=== PATIENT | male | born 1995 | race Caucasian/White ===

== ENCOUNTER 2017-03-31 19:16 | Emergency (ER) | payer MEDICAID ==
[2017-03-31] MEDS ORDERED: Cyclobenzaprine 10 MG Tab PO ONE (20:29)
[2017-03-31] MEDS ORDERED: Ketorolac 60 MG/2 ML SDV IM ONE (20:29)
--- NOTE | 2017-03-31 20:36 | EDM.PDOC ---
ED HPI GENERAL MEDICAL PROBLEM - General Chief Complaint: Back Pain or Injury Stated Complaint: LOW BACK PAIN Time Seen by Provider: 03/31/17 20:22 Source of Information: Reports: Patient History Limitations: Reports: No Limitations - History of Present Illness INITIAL COMMENTS - FREE TEXT/NARRATIVE: low back pain; this is a 21 year old male present to ER with SO, reports at 3: 30pm today, was at his Mom's house, picking up a box TV, which was really heavy , felt like his back "popped" like a tearing sensation. has been in "serious" pain ever since. Hurts to sit, walk, lay down. Can not get comfortable. denies any changes in bowel or bladder Onset: Sudden Onset Date: 03/31/17 Onset Time: 15:30 Duration: Constant, Getting Worse Location: Reports: Back Quality: Reports: Pressure, Sharp, Stabbing Severity: Severe Improves with: Reports: None Worsens with: Reports: Movement Context: Reports: Other (lifting a heavy box TV) Associated Symptoms: Reports: No Other Symptoms Lower Back Pain Score (Numeric/FACES): 10 - Related Data Allergies Allergy/AdvReac Type Severity Reaction Status Date / Time No Known Allergies Allergy Verified 03/31/17 20:06 Home Meds: Home Meds NK [No Known Home Meds] 03/31/17 [History] Past Medical History Musculoskeletal History: Reports: Fracture Other Musculoskeletal History: Fx hand s,arms, legs, toes. Neurological History: Reports: Concussion, Migraines Dermatologic History: Reports: Other (See Below) Other Dermatologic History: rash - Infectious Disease History Infectious Disease History: Reports: Chicken Pox - Past Surgical History GI Surgical History: Reports: Hernia, Inguinal Social & Family History - Tobacco Use Smoking Status *Q: Current Every Day Smoker Years of Tobacco use: 8 Packs/Tins Daily: 1 Used Tobacco, but Quit: No Second Hand Smoke Exposure: Yes - Caffeine Use Caffeine Use: Reports: Coffee, Soda, Tea - Alcohol Use Days Per Week of Alcohol Use: 2 Number of Drinks Per Day: 4 Total Drinks Per Week: 8 - Recreational Drug Use Recreational Drug Use: No ED ROS GENERAL - Review of Systems Review Of Systems: See Below Constitutional: Reports: Other (back pain. reports otherwise healthy) HEENT: Reports: No Symptoms Respiratory: Reports: No Symptoms Cardiovascular: Reports: No Symptoms Endocrine: Reports: No Symptoms GI/Abdominal: Reports: No Symptoms : Reports: No Symptoms Musculoskeletal: Reports: Back Pain Skin: Reports: No Symptoms, Other (heavily Tattoo, head, neck, arms, hands.upper chest) Neurological: Reports: Difficulty Walking (due to back pain,) Psychiatric: Reports: No Symptoms Hematologic/Lymphatic: Reports: No Symptoms Immunologic: Reports: No Symptoms ED EXAM, GENERAL - Physical Exam Exam: See Below Exam Limited By: No Limitations General Appearance: Alert, WD/WN, Moderate Distress, Other (very polite , pleasant, neat and well groomed.) Eye Exam: Bilateral Eye: Normal Inspection Neck: Normal Inspection, Supple, Non-Tender Respiratory/Chest: No Respiratory Distress, Lungs Clear, Normal Breath Sounds, No Accessory Muscle Use, Chest Non-Tender, Other (pain with inspiration) Cardiovascular: Regular Rate, Rhythm, No Murmur GI/Abdominal: Normal Bowel Sounds, Soft, Non-Tender (Male) Exam: Deferred Rectal (Males) Exam: Deferred Back Exam: Decreased Range of Motion (increased pain with flexion or extension of spine. pain does not change with rotation of spine. increased pain with straight leg lift.), Muscle Spasm (low back, doesnot radiate to hips or legs. patellar refexes 2+ bilateral) Extremities: Normal Inspection, Leg Pain (increased with straight leg lift bilateral. ) Neurological: Alert, Oriented, Other (pain with ambulation) Psychiatric: Normal Affect, Normal Mood Skin Exam: Warm, Dry, Intact, Normal Color, No Rash, Other (tattoo on head, neck , arms, finger, anterior upper chest.) Lymphatic: No Adenopathy Course - Vital Signs Last Recorded V/S: Last Vital Signs Temp 35.6 C 03/31/17 20:12 Pulse 60 03/31/17 20:12 Resp 16 03/31/17 20:12 BP 121/63 03/31/17 20:12 Pulse Ox 99 03/31/17 20:12 - Orders/Labs/Meds Orders: Active Orders 24 hr Category Date Time Status Lumbar Spine 2 or 3V [CR] Stat Exams 03/31/17 20:28 Taken Meds: Medications Discontinued Medications Generic Name Dose Route Start Last Admin Trade Name Freq PRN Reason Stop Dose Admin Cyclobenzaprine HCl 10 mg 03/31/17 20:29 03/31/17 20:56 Flexeril PO 03/31/17 20:30 10 mg ONETIME ONE Administration Ketorolac Tromethamine 60 mg 03/31/17 20:29 03/31/17 20:57 Toradol IM 03/31/17 20:30 60 mg ONETIME ONE Administration - Re-Assessments/Exams Free Text/Narrative Re-Assessment/Exam: 03/31/17 20:42 order Toradol 60mg IM, flexeril 10 mg po now imaging; xray lumbar spine 03/31/17 21:19 xray no acute bony injury noted. discussed xray results with Patient and SO will discharge to home with back restrictions, medications. work slip written Departure - Departure Time of Disposition: 21:20 Disposition: Home, Self-Care 01 Condition: Good Clinical Impression: Lumbar back sprain - Discharge Information Referrals: PCP,None [Primary Care Provider] - Forms: ED Department Discharge Care Plan Goals: Lumbar back strain -[place] 5-325mg take one every 4 to 6 hours as needed for pain #10 -Flexeril 10mg take one every 8 hours as needed for muscle spasms #15 -Ibuprofen 600mg take one eveyr 8 hours for pain #30 -work slip for next 3 to 5 days advised no lifting greater than 10 pounds, bending or twisting for next 3 to 5 days will need to follow up with Primary Care Provider for recheck in 5 days if not improved return to ER for any numbness of legs, changes in bowel or bladder or any concerns. - Problem List & Annotations (1) Lumbar back sprain SNOMED Code(s): 250929456 Code(s): S33.5XXA - SPRAIN OF LIGAMENTS OF LUMBAR SPINE, INITIAL ENCOUNTER Status: Acute Priority: High Current Visit: Yes Qualifiers: Encounter type: initial encounter Qualified Code(s): S33.5XXA - Sprain of ligaments of lumbar spine, initial encounter - Problem List Review Problem List Initiated/Reviewed/Updated: Yes - My Orders Last 24 Hours: My Active Orders 03/31/17 20:28 Lumbar Spine 2 or 3V [CR] Stat - Assessment/Plan Last 24 Hours: My Active Orders 03/31/17 20:28 Lumbar Spine 2 or 3V [CR] Stat Plan: Lumbar back strain -[place] 5-325mg take one every 4 to 6 hours as needed for pain #10 -Flexeril 10mg take one every 8 hours as needed for muscle spasms #15 -Ibuprofen 600mg take one eveyr 8 hours for pain #30 -work slip for next 3 to 5 days advised no lifting greater than 10 pounds, bending or twisting for next 3 to 5 days will need to follow up with Primary Care Provider for recheck in 5 days if not improved return to ER for any numbness of legs, changes in bowel or bladder or any concerns.
--- NOTE | 2017-04-01 09:11 | CR ---
Lumbar Spine 2 or 3V FINDINGS: Routine views of the lumbosacral spine reveal the vertebral bodies to be of normal height w ith adequate maintenance of the intervertebral disc spaces. There is no evidence of traumatic, neopla stic, or significant arthritic change. There is no evidence of spondylolysis or spondylolisthesis. IMPRESSION: Normal lumbar spine.
== END 2017-03-31 21:35 | disposition home or self-care (01) ==
LOC: JP.ED 19:16
DX: S33.5XXA Sprain of ligaments of lumbar spine, initial encounter (principal); X50.0XXA Overexertion from strenuous movement or load, initial encounter; F17.210 Nicotine dependence, cigarettes, uncomplicated
CPT/HCPCS: 72100; 96372; 99284; A9270; J1885; 99283

== ENCOUNTER 2018-08-29 22:22 | Inpatient (IN) | payer MEDICAID, OTHER ==
[2018-08-29] MEDS ORDERED: Sodium Chloride 0.9% 10 ML Syringe FLUSH PRN (22:51)
[2018-08-29] MEDS ORDERED: Ondansetron 4 MG/2 ML SDV IVPUSH ONE (22:51)
[2018-08-29] MEDS ORDERED: fentaNYL 100 MCG/2 ML SDV IVPUSH ONE (22:51)
--- NOTE | 2018-08-29 22:53 | EDM.PDOC ---
ED HPI GENERAL MEDICAL PROBLEM - General Chief Complaint: Abdominal Pain Stated Complaint: ABD PAIN Time Seen by Provider: 08/29/18 22:48 Source of Information: Reports: Patient, RN Notes Reviewed History Limitations: Reports: No Limitations - History of Present Illness INITIAL COMMENTS - FREE TEXT/NARRATIVE: 23-year-old presents to the emergency department today with complaint of abdominal pain, he states he's had pain on and off for the last 3 days but today it got significantly worse it seems to be in the left upper quadrant no nausea he is not passing gas no fevers no shortness of breath or chest pain no history of nephrolithiasis - Related Data Allergies Allergy/AdvReac Type Severity Reaction Status Date / Time No Known Allergies Allergy Verified 08/29/18 22:36 Home Meds: Home Meds NK [No Known Home Meds] 03/31/17 [History] Past Medical History Musculoskeletal History: Reports: Fracture Other Musculoskeletal History: Fx hand s,arms, legs, toes. Neurological History: Reports: Concussion, Migraines Dermatologic History: Reports: Other (See Below) Other Dermatologic History: rash - Infectious Disease History Infectious Disease History: Reports: Chicken Pox - Past Surgical History GI Surgical History: Reports: Hernia, Inguinal Social & Family History - Tobacco Use Smoking Status *Q: Current Every Day Smoker Years of Tobacco use: 6 Packs/Tins Daily: 1 - Caffeine Use Caffeine Use: Reports: Coffee, Soda, Tea ED ROS GENERAL - Review of Systems Review Of Systems: See Below Constitutional: Denies: Fever, Chills HEENT: Reports: No Symptoms Respiratory: Reports: No Symptoms Cardiovascular: Reports: No Symptoms GI/Abdominal: Reports: Abdominal Pain. Denies: Flatus, Nausea, Vomiting : Reports: No Symptoms Musculoskeletal: Reports: No Symptoms Skin: Reports: No Symptoms ED EXAM, GI/ABD - Physical Exam Exam: See Below Exam Limited By: No Limitations General Appearance: Alert, WD/WN, Mild Distress Eyes: Bilateral: Normal Appearance Throat/Mouth: Normal Inspection, Normal Lips, Normal Teeth, Normal Gums, Normal Oropharynx, Normal Voice, No Airway Compromise Head: Atraumatic, Normocephalic Neck: Normal Inspection, Supple, Non-Tender, Full Range of Motion Respiratory/Chest: No Respiratory Distress, Lungs Clear, Normal Breath Sounds, No Accessory Muscle Use, Chest Non-Tender Cardiovascular: Regular Rate, Rhythm, No Murmur GI/Abdominal Exam: Normal Bowel Sounds, Soft, Tender (Left upper quadrant) Back Exam: No: CVA Tenderness (R), CVA Tenderness (L) Course - Vital Signs Last Recorded V/S: Last Vital Signs Temp 96.4 F 08/29/18 22:43 Pulse 57 L 08/29/18 22:43 Resp 16 08/29/18 22:43 BP 135/87 08/29/18 22:43 Pulse Ox 98 08/29/18 22:43 - Orders/Labs/Meds Orders: Active Orders 24 hr Category Date Time Status Peripheral IV Care [RC] . DIRECTED Care 08/29/18 22:51 Active Lactated Ringers [Ringers, Lactated] 1,000 ml Med 08/29/18 23:00 Active IV ASDIRECTED Sodium Chloride 0.9% [Saline Flush] Med 08/29/18 22:51 Active 10 ml FLUSH ASDIRECTED PRN Nasogastric Orogastric Tube Insertion [OM.PC] Routine Oth 08/30/18 01:08 Ordered Peripheral IV Insertion Adult [OM.PC] Urgent Oth 08/29/18 22:51 Ordered Medication Orders Lactated Ringer's (Ringers, Lactated) 1,000 mls @ 999 mls/hr IV ASDIRECTED ANAID Last Admin: 08/29/18 23:36 Dose: 999 mls/hr Sodium Chloride (Saline Flush) 10 ml FLUSH ASDIRECTED PRN PRN Reason: Keep Vein Open Last Admin: 08/29/18 23:04 Dose: 10 ml Labs: Laboratory Tests 08/29/18 08/29/18 08/29/18 Range/Units 22:59 22:59 22:59 WBC 7.6 (4.5-11.0) K/uL RBC 5.10 (4.30-5.90) M/uL Hgb 15.3 H (12.0-15.0) g/dL Hct 43.9 (40.0-54.0) % MCV 86 (80-98) fL MCH 30 (27-31) pg MCHC 35 (32-36) % Plt Count 271 (150-400) K/uL Neut % (Auto) 45 (36-66) % Lymph % (Auto) 40 (24-44) % [place] % (Auto) 13 H (2-6) % Eos % (Auto) 2 (2-4) % Baso % (Auto) 1 (0-1) % Sodium 139 L (140-148) mmol/L Potassium 3.7 (3.6-5.2) mmol/L Chloride 100 (100-108) mmol/L Carbon Dioxide 30 (21-32) mmol/L Anion Gap 12.7 (5.0-14.0) mmol/L BUN 19 H (7-18) mg/dL Creatinine 1.1 (0.8-1.3) mg/dL Est Cr Clr Drug Dosing 106.92 mL/min Estimated GFR (MDRD) > 60 (>60) Glucose 90 (74-106) mg/dL Lactic Acid 0.8 (0.4-2.0) mmol/L Calcium 9.5 (8.5-10.1) mg/dL Total Bilirubin 0.4 (0.2-1.0) mg/dL AST 20 (15-37) U/L ALT 24 (12-78) U/L Alkaline Phosphatase 98 (46-116) U/L Total Protein 7.5 (6.4-8.2) g/dL Albumin 3.9 (3.4-5.0) g/dL Globulin 3.6 H (2.3-3.5) g/dL Albumin/Globulin Ratio 1.1 L (1.2-2.2) Lipase 96 (73-393) U/L Urine Color Urine Appearance Urine pH (4.5-8.0) Ur Specific [place] (1.008-1.030) Urine Protein (NEGATIVE) mg/dL Urine Glucose (UA) (NEGATIVE) mg/dL Urine Ketones (NEGATIVE) mg/dL Urine Occult Blood (NEGATIVE) Urine Nitrite (NEGAITVE) Urine Bilirubin (NEGATIVE) Urine Urobilinogen (NORMAL) mg/dL Ur Leukocyte Esterase (NEGATIVE) Urine RBC (0-5) Urine WBC (0-5) Ur Epithelial Cells Amorphous Sediment Urine Bacteria Urine Mucus 08/29/18 Range/Units 23:24 WBC (4.5-11.0) K/uL RBC (4.30-5.90) M/uL Hgb (12.0-15.0) g/dL Hct (40.0-54.0) % MCV (80-98) fL MCH (27-31) pg MCHC (32-36) % Plt Count (150-400) K/uL Neut % (Auto) (36-66) % Lymph % (Auto) (24-44) % [place] % (Auto) (2-6) % Eos % (Auto) (2-4) % Baso % (Auto) (0-1) % Sodium (140-148) mmol/L Potassium (3.6-5.2) mmol/L Chloride (100-108) mmol/L Carbon Dioxide (21-32) mmol/L Anion Gap (5.0-14.0) mmol/L BUN (7-18) mg/dL Creatinine (0.8-1.3) mg/dL Est Cr Clr Drug Dosing mL/min Estimated GFR (MDRD) (>60) Glucose (74-106) mg/dL Lactic Acid (0.4-2.0) mmol/L Calcium (8.5-10.1) mg/dL Total Bilirubin (0.2-1.0) mg/dL AST (15-37) U/L ALT (12-78) U/L Alkaline Phosphatase (46-116) U/L Total Protein (6.4-8.2) g/dL Albumin (3.4-5.0) g/dL Globulin (2.3-3.5) g/dL Albumin/Globulin Ratio (1.2-2.2) Lipase (73-393) U/L Urine Color Yellow Urine Appearance Clear Urine pH 7.0 (4.5-8.0) Ur Specific [place] 1.010 (1.008-1.030) Urine Protein Negative (NEGATIVE) mg/dL Urine Glucose (UA) Normal (NEGATIVE) mg/dL Urine Ketones Negative (NEGATIVE) mg/dL Urine Occult Blood Negative (NEGATIVE) Urine Nitrite Negative (NEGAITVE) Urine Bilirubin Negative (NEGATIVE) Urine Urobilinogen Normal (NORMAL) mg/dL Ur Leukocyte Esterase Negative (NEGATIVE) Urine RBC 0-5 (0-5) Urine WBC 0-5 (0-5) Ur Epithelial Cells Rare Amorphous Sediment Not seen Urine Bacteria Few Urine Mucus Not seen Meds: Medications Generic Name Dose Route Start Last Admin Trade Name Freq PRN Reason Stop Dose Admin Lactated Ringer's 1,000 mls @ 999 mls/hr 08/29/18 23:00 08/29/18 23:36 Ringers, Lactated IV 999 mls/hr ASDIRECTED ANAID Administration Sodium Chloride 10 ml 08/29/18 22:51 08/29/18 23:04 Saline Flush FLUSH 10 ml ASDIRECTED PRN Administration Keep Vein Open Discontinued Medications Generic Name Dose Route Start Last Admin Trade Name Freq PRN Reason Stop Dose Admin Fentanyl 50 mcg 08/29/18 22:51 08/29/18 23:04 Sublimaze IVPUSH 08/29/18 22:52 50 mcg ONETIME ONE Administration Sodium Chloride 75 mls @ 3.5 mls/sec 08/29/18 23:19 08/29/18 23:25 Normal Saline IV 08/29/18 23:20 3.5 mls/sec ASDIRECTED STA Administration Iopamidol 116 ml 08/29/18 23:18 08/29/18 23:24 Isovue-300 (61%) IV 08/29/18 23:19 150 ml . DIRECTED STA Administration Ondansetron HCl 4 mg 08/29/18 22:51 08/29/18 23:04 Zofran IVPUSH 08/29/18 22:52 4 mg ONETIME ONE Administration Departure - Departure Time of Disposition: 01:14 Disposition: Refer to Observation Condition: Fair Clinical Impression: SBO (small bowel obstruction) - Discharge Information Referrals: PCP,None [Primary Care Provider] - Forms: ED Department Discharge - My Orders Last 24 Hours: My Active Orders 08/29/18 22:51 Peripheral IV Care [RC] . DIRECTED Sodium Chloride 0.9% [Saline Flush] 10 ml FLUSH ASDIRECTED PRN Peripheral IV Insertion Adult [OM.PC] Urgent 08/29/18 23:00 Lactated Ringers [Ringers, Lactated] 1,000 ml IV ASDIRECTED 08/30/18 01:08 Nasogastric Orogastric Tube Insertion [OM.PC] Routine - Assessment/Plan Last 24 Hours: My Active Orders 08/29/18 22:51 Peripheral IV Care [RC] . DIRECTED Sodium Chloride 0.9% [Saline Flush] 10 ml FLUSH ASDIRECTED PRN Peripheral IV Insertion Adult [OM.PC] Urgent 08/29/18 23:00 Lactated Ringers [Ringers, Lactated] 1,000 ml IV ASDIRECTED 08/30/18 01:08 Nasogastric Orogastric Tube Insertion [OM.PC] Routine Plan: Assessment Acuity = acute Site and laterality = small bowel obstruction Etiology = unclear etiology Manifestations = abdominal pain Location of injury = Home Lab values = CBC, CMP urinalysis unremarkable CT scan describes bowel obstruction above Plan Called discussed case with hospitalist nurse practitioner home assessments at 110 kindly agreed to come and evaluate the patient in the emergency department for admission This note was dictated using [email or web address] voice recognition software please call with any questions on syntax or grammar.
[2018-08-29] MEDS ORDERED: Lactated Ringers 1,000 ML IV SCH (23:00)
[2018-08-29] MEDS ORDERED: Iopamidol 612 MG/ML 150 ML Bottle IV STA (23:18)
[2018-08-29] MEDS ORDERED: Sodium Chloride 0.9% 75 ML IV STA (23:19)
--- NOTE | 2018-08-30 01:05 | CRLCT ---
INDICATION: Left upper quadrant abdominal pain. TECHNIQUE: CT abdomen and pelvis acquired with IV contrast. COMPARISON: None FINDINGS: Lower chest: Unremarkable. Liver: Unremarkable. Spleen: Unremarkable. Pancreas: Unremarkable. Gallbladder and bile ducts: Unremarkable. Kidneys: Unremarkable. Adrenal glands: Unremarkable. GI tract: The stomach is distended with fluid. There are several prominent to mildly dilated fluid filled loops of small bowel identified. Transition to nondilated small bowel identified in the left aspect of the pelvis. Proximal jejunal loops are nondistended. No pneumatosis. No portal venous gas. The appendix is normal. No acute colonic abnormality. Right colon is not decompressed. Left colon is relatively decompressed. Vascular structures: No sign of aneurysm. Lymph nodes: Unremarkable. Miscellaneous: There is a small amount of free fluid in the pelvis. No free intraperitoneal gas. Pelvic Organs: Unremarkable. Bones: No acute abnormality. No suspicious bone lesion. IMPRESSION: 1. Several prominent to mildly dilated fluid-filled loops of small bowel. Findings are suspicious for early or partial small bowel obstruction. Likely transition point in the left pelvis. 2. Small amount of free fluid in the pelvis likely reactive to #1. Results called to Officer Kristian at 1 a.m. on 08/30/2018. Dictated by Fly King MD @ 08/30/2018 1:04:37 AM Please note that all CT scans at this facility use dose modulation, iterative reconstruction, and/or weight-based dosing when appropriate to reduce radiation dose to as low as reasonably achievable. Dictated by: Fly King MD @ 08/30/2018 01:05:14 (Electronically Signed)
[2018-08-30] MEDS ORDERED: LORazepam 2 MG/ML SDV IVPUSH ONE (01:35)
[2018-08-30] MEDS ORDERED: HYDROmorphone 1 MG/ML Syringe IVPUSH ONE (01:59)
--- NOTE | 2018-08-30 02:19 | PCM.HP ---
H&P History of Present Illness - General Date of Service: 08/30/18 Admit Problem/Dx: Admission Diagnosis/Problem Admission Diagnosis/Problem Small bowel obstruction Source of Information: Patient History Limitations: Reports: No Limitations - History of Present Illness Initial Comments - Free Text/Narative: 23-year-old presents to the emergency department today with complaint of abdominal pain, he states he's had pain on and off for the last 3 days but today it got significantly worse. Pain seems to be in the left upper quadrant, no nausea, he is not passing gas, no fever, no shortness of breath or chest pain. no history of nephrolithiasis. Onset of Symptoms: Reports: Gradual Duration of Symptoms: Reports: Hour(s): (increase pain this evening.), Day(s): ( intermittent for 3 days), Getting Worse Location: Reports: Abdomen Quality: Reports: Sharp Severity: Severe Improves with: Reports: None Worsens with: Reports: Eating Associated Symptoms: Reports: Loss of Appetite, Nausea/Vomiting - Related Data Allergies/Adverse Reactions: Allergies Allergy/AdvReac Type Severity Reaction Status Date / Time No Known Allergies Allergy Verified 08/29/18 22:36 Home Medications: Home Meds NK [No Known Home Meds] 03/31/17 [History] Past Medical History Musculoskeletal History: Reports: Fracture Other Musculoskeletal History: Fx hand s,arms, legs, toes. Neurological History: Reports: Concussion, Migraines Dermatologic History: Reports: Other (See Below) Other Dermatologic History: rash - Infectious Disease History Infectious Disease History: Reports: Chicken Pox - Past Surgical History GI Surgical History: Reports: Hernia, Inguinal Social & Family History - Tobacco Use Smoking Status *Q: Current Every Day Smoker Years of Tobacco use: 6 Packs/Tins Daily: 1 - Caffeine Use Caffeine Use: Reports: Coffee, Soda, Tea - Living Situation & Occupation Occupation: Employed (Works at [employer]. lives in [place] with roommate. Has a girlfriend Denisse.) H&P Review of Systems - Review of Systems: Review Of Systems: See Below General: Reports: Decreased Appetite, Other (report healthy until develops acute abdominal pain this evening.) HEENT: Reports: No Symptoms Pulmonary: Reports: No Symptoms, Other (smokes one pack per day) Cardiovascular: Reports: No Symptoms Gastrointestinal: Reports: Abdominal Pain (intermittent x 3 days, worse this evening, uncontrolled pain), Diarrhea (on Thursday), Nausea, Vomiting Genitourinary: Reports: No Symptoms Musculoskeletal: Reports: No Symptoms Skin: Reports: No Symptoms Psychiatric: Reports: No Symptoms Neurological: Reports: No Symptoms Hematologic/Lymphatic: Reports: No Symptoms Immunologic: Reports: No Symptoms Exam - Exam Exam: See Below - Vital Signs Vital Signs: Last Vital Signs Temp 35.8 C 08/29/18 22:43 Pulse 57 L 08/29/18 22:43 Resp 16 08/29/18 22:43 BP 135/87 08/29/18 22:43 Pulse Ox 98 08/29/18 22:43 Weight: 77.111 kg - Exam Quality Assessment: Other (NG tube ) General: Alert, Oriented, Cooperative, Moderate Distress (active vomiting) HEENT: PERRLA, Hearing Intact, Mucosa Moist & [place], Nares Patent, Normal Nasal Septum, Posterior Pharynx Clear, Conjunctiva Clear, EOMI, EACs Clear, TMs Clear Neck: Supple, Trachea Midline, 2 Lungs: Clear to Auscultation, Normal Respiratory Effort Cardiovascular: Normal S1, Normal S2 GI/Abdominal Exam: Tender, Other (firm flat abdomin with generalized tenderness. bowel sounds absent) (Male) Exam: Deferred Rectal (Males) Exam: Deferred Back Exam: Normal Inspection, Full Range of Motion Extremities: Normal Inspection, Normal Range of Motion, Non-Tender, No Pedal Edema, Normal Capillary Refill Skin: Warm, Dry, Intact, Other (extensive tattoo to head, neck, chest arms, hands.) Neurological: Reflexes Equal Bilateral, Strength Equal Bilateral Neuro Extensive - Mental Status: Alert, Oriented x3, Normal Mood/Affect, Normal Cognition Neuro Extensive - Motor, Sensory, Reflexes: Normal Reflexes Psychiatric: Alert, Normal Affect, Normal Mood - Patient Data Lab Results Last 24 hrs: Laboratory Results - last 24 hr 08/29/18 08/29/18 08/29/18 Range/Units 22:59 22:59 22:59 WBC 7.6 (4.5-11.0) K/uL RBC 5.10 (4.30-5.90) M/uL Hgb 15.3 H (12.0-15.0) g/dL Hct 43.9 (40.0-54.0) % MCV 86 (80-98) fL MCH 30 (27-31) pg MCHC 35 (32-36) % Plt Count 271 (150-400) K/uL Neut % (Auto) 45 (36-66) % Lymph % (Auto) 40 (24-44) % [place] % (Auto) 13 H (2-6) % Eos % (Auto) 2 (2-4) % Baso % (Auto) 1 (0-1) % Sodium 139 L (140-148) mmol/L Potassium 3.7 (3.6-5.2) mmol/L Chloride 100 (100-108) mmol/L Carbon Dioxide 30 (21-32) mmol/L Anion Gap 12.7 (5.0-14.0) mmol/L BUN 19 H (7-18) mg/dL Creatinine 1.1 (0.8-1.3) mg/dL Est Cr Clr Drug Dosing 106.92 mL/min Estimated GFR (MDRD) > 60 (>60) Glucose 90 (74-106) mg/dL Lactic Acid 0.8 (0.4-2.0) mmol/L Calcium 9.5 (8.5-10.1) mg/dL Total Bilirubin 0.4 (0.2-1.0) mg/dL AST 20 (15-37) U/L ALT 24 (12-78) U/L Alkaline Phosphatase 98 (46-116) U/L Total Protein 7.5 (6.4-8.2) g/dL Albumin 3.9 (3.4-5.0) g/dL Globulin 3.6 H (2.3-3.5) g/dL Albumin/Globulin Ratio 1.1 L (1.2-2.2) Lipase 96 (73-393) U/L Urine Color Urine Appearance Urine pH (4.5-8.0) Ur Specific [place] (1.008-1.030) Urine Protein (NEGATIVE) mg/dL Urine Glucose (UA) (NEGATIVE) mg/dL Urine Ketones (NEGATIVE) mg/dL Urine Occult Blood (NEGATIVE) Urine Nitrite (NEGAITVE) Urine Bilirubin (NEGATIVE) Urine Urobilinogen (NORMAL) mg/dL Ur Leukocyte Esterase (NEGATIVE) Urine RBC (0-5) Urine WBC (0-5) Ur Epithelial Cells Amorphous Sediment Urine Bacteria Urine Mucus 08/29/18 Range/Units 23:24 WBC (4.5-11.0) K/uL RBC (4.30-5.90) M/uL Hgb (12.0-15.0) g/dL Hct (40.0-54.0) % MCV (80-98) fL MCH (27-31) pg MCHC (32-36) % Plt Count (150-400) K/uL Neut % (Auto) (36-66) % Lymph % (Auto) (24-44) % [place] % (Auto) (2-6) % Eos % (Auto) (2-4) % Baso % (Auto) (0-1) % Sodium (140-148) mmol/L Potassium (3.6-5.2) mmol/L Chloride (100-108) mmol/L Carbon Dioxide (21-32) mmol/L Anion Gap (5.0-14.0) mmol/L BUN (7-18) mg/dL Creatinine (0.8-1.3) mg/dL Est Cr Clr Drug Dosing mL/min Estimated GFR (MDRD) (>60) Glucose (74-106) mg/dL Lactic Acid (0.4-2.0) mmol/L Calcium (8.5-10.1) mg/dL Total Bilirubin (0.2-1.0) mg/dL AST (15-37) U/L ALT (12-78) U/L Alkaline Phosphatase (46-116) U/L Total Protein (6.4-8.2) g/dL Albumin (3.4-5.0) g/dL Globulin (2.3-3.5) g/dL Albumin/Globulin Ratio (1.2-2.2) Lipase (73-393) U/L Urine Color Yellow Urine Appearance Clear Urine pH 7.0 (4.5-8.0) Ur Specific [place] 1.010 (1.008-1.030) Urine Protein Negative (NEGATIVE) mg/dL Urine Glucose (UA) Normal (NEGATIVE) mg/dL Urine Ketones Negative (NEGATIVE) mg/dL Urine Occult Blood Negative (NEGATIVE) Urine Nitrite Negative (NEGAITVE) Urine Bilirubin Negative (NEGATIVE) Urine Urobilinogen Normal (NORMAL) mg/dL Ur Leukocyte Esterase Negative (NEGATIVE) Urine RBC 0-5 (0-5) Urine WBC 0-5 (0-5) Ur Epithelial Cells Rare Amorphous Sediment Not seen Urine Bacteria Few Urine Mucus Not seen Result Diagrams: 08/29/18 22:59 08/29/18 22:59 - Problem List (1) SBO (small bowel obstruction) SNOMED Code(s): 597753929 ICD Code: K56.609 - UNSP INTESTNL OBST, UNSP TO PARTIAL VERSUS COMPLETE OBST Status: Acute Priority: High Current Visit: Yes (2) Tobacco dependence SNOMED Code(s): 98801085 ICD Code: F17.200 - NICOTINE DEPENDENCE, UNSPECIFIED, UNCOMPLICATED Status : Acute Priority: High Current Visit: Yes Problem List Initiated/Reviewed/Updated: Yes Orders Last 24hrs: Active Orders 24 hr Category Date Time Status Patient Status Manage Transfer [TRANSFER] Routine ADT 08/30/18 02:03 Ordered Peripheral IV Care [RC] . DIRECTED Care 08/29/18 22:51 Active Abdomen 1V Flat [CR] Stat Exams 08/30/18 01:37 Taken Lactated Ringers [Ringers, Lactated] 1,000 ml Med 08/29/18 23:00 Active IV ASDIRECTED Sodium Chloride 0.9% [Saline Flush] Med 08/29/18 22:51 Active 10 ml FLUSH ASDIRECTED PRN Nasogastric Orogastric Tube Insertion [OM.PC] Routine Oth 08/30/18 01:08 Ordered Peripheral IV Insertion Adult [OM.PC] Urgent Oth 08/29/18 22:51 Ordered Resuscitation Status Routine Resus Stat 08/30/18 02:04 Ordered Medication Orders Lactated Ringer's (Ringers, Lactated) 1,000 mls @ 999 mls/hr IV ASDIRECTED ANAID Last Admin: 08/29/18 23:36 Dose: 999 mls/hr Sodium Chloride (Saline Flush) 10 ml FLUSH ASDIRECTED PRN PRN Reason: Keep Vein Open Last Admin: 08/29/18 23:04 Dose: 10 ml Assessment/Plan Comment:: Small Bowel Obstruction ASSESSMENT / PLAN HPI: 23 year old male reports ate Thursday dinner of [place] chips, later developed acute abdominal pain. The pain continue to increase came to ER for evaluation. He report "Healthy", no chronic health condition except for smoking 1 pack per day. Does not take any medications on a daily basis. ER course White count was normal at 7.600 with 45% neutrophils. Hemoglobin normal, CMP also normal with a normal lactic acid. CT the abdomen and pelvis was done with IV contrast, patient responded well to the IV Fentanyl [address] confirmed a small bowel obstruction. After NG tube placement, Adeline became very nauseated from NG tube placement, given Ativan 1 mg IV. X ray ordered for tube place, it was noted to be high in stomach, the tube was retracted to 55 cm, suction of stomach fluid and nausea improved. Patient needed an additional dose of IV Dilaudid for pain control. Plan to admit to hospital. Partial Small Bowel Obstruction -NG to low intermittent suction, NG 18 fr at 55 cm. -Nothing by mouth -IV fluids Lacted Ringers 125 mL per hour for hydration -Anti-medic therapy as needed -Dilaudid HAT [employer]ER for pain control -Labs to be ordered for Thursday. Tobacco Dependence -albuterol MDI every 4 hours as needed for wheezing and cough -Advise to notify nurses of any cravings for nicotine -declines Nicotine patch Maintenance issues -Orders home meds: hold -Nutrition: Nothing by mouth -Llanos catheter not indicated at this time -DVT: ambulate -PPI: IV Protonix 40mg BID CODE STATUS: FULL CODE Admission status: Admit to [address] [place] [address] Admission justification. This patient will be admitted for inpatient services and is medically appropriate meeting medical necessity for inpatient admission as outlined in my documentation. I reasonably expect the patient will require inpatient services that span. Time over 2 midnights. I reasonably expect this patient to be discharged or transferred within 96 hours after admission to the critical access hospital. Disposition: home Primary care provider: Hospitalist: Dr. Rodriguez
--- NOTE | 2018-08-30 02:40 | CRLCR ---
Indication: NG tube placement Technique: Abdomen 1 view, 2 films Comparison: None Findings/Impression: Upper normal diameter loops of small bowel with a moderate amount of stool within the colon. Contrast noted within the collecting systems. Nasogastric tube with tip in body of the stomach. Dictated by Brennen Leija MD @ Aug 30 2018 2:38AM Signed by Dr. Brennen Leija @ Aug 30 2018 2:39AM
[2018-08-30] MEDS ORDERED: HYDROmorphone/Normal Saline 15 MG/30 ML PCA IV PRN (03:15)
[2018-08-30] MEDS ORDERED: Naloxone 0.4 MG/ML SDV IVPUSH PRN (03:15)
[2018-08-30] MEDS ORDERED: LORazepam 2 MG/ML SDV IV PRN (03:15)
[2018-08-30] MEDS ORDERED: Ondansetron 4 MG Tab.DIS PO PRN (03:15)
[2018-08-30] MEDS ORDERED: Albuterol 0.083% 2.5 MG/3 ML Neb Soln NEB PRN (03:15)
[2018-08-30] MEDS: Pantoprazole 40 MG Vial IVPUSH SCH ×2 (03:49→15:58)
[2018-08-30] MEDS: Lactated Ringers 1,000 ML IV SCH ×2 (11:31→19:11)
[2018-08-30] MEDS ORDERED: Nicotine Polacrilex 2 MG Gum CHEW PRN (12:55)
[2018-08-30] MEDS: Nicotine 21 MG/24 Hr Patch TRDERM SCH (14:48)
--- NOTE | 2018-08-30 17:38 | PCM.PN ---
- General Info Date of Service: 08/30/18 Subjective Update: Mr. Le is a 23-year-old gentleman who was admitted through the emergency department last night with abdominal pain and nausea secondary to small bowel obstruction. Symptoms that started on the day prior to admission and were unrelenting up until NG tube was placed. CT scan of the abdomen was obtained in the emergency department and showed evidence of at least partial small bowel obstruction. Since admission he has passed a small amount of gas but is not yet had a bowel movement. Only previous abdominal surgery was hernia repair. - Review of Systems General: Reports: No Symptoms Pulmonary: Reports: No Symptoms Cardiovascular: Reports: No Symptoms Gastrointestinal: Reports: Abdominal Pain, Nausea. Denies: Difficulty Swallowing, Hematochezia, Melena, Vomiting - Patient Data Vitals - Most Recent: Last Vital Signs Temp 98.3 F 08/30/18 15:57 Pulse 48 L 08/30/18 15:57 Resp 16 08/30/18 15:57 BP 120/79 08/30/18 15:57 Pulse Ox 99 08/30/18 15:57 Weight - Most Recent: 169 lb 15.975 oz I&O - Last 24 Hours: Intake & Output 08/30/18 08/30/18 08/30/18 06:59 14:59 22:59 Output Total 800 Balance -800 Lab Results Last 24 Hours: Laboratory Results - last 24 hr 08/29/18 08/29/18 08/29/18 Range/Units 22:59 22:59 22:59 WBC 7.6 (4.5-11.0) K/uL RBC 5.10 (4.30-5.90) M/uL Hgb 15.3 H (12.0-15.0) g/dL Hct 43.9 (40.0-54.0) % MCV 86 (80-98) fL MCH 30 (27-31) pg MCHC 35 (32-36) % Plt Count 271 (150-400) K/uL Neut % (Auto) 45 (36-66) % Lymph % (Auto) 40 (24-44) % [place] % (Auto) 13 H (2-6) % Eos % (Auto) 2 (2-4) % Baso % (Auto) 1 (0-1) % Sodium 139 L (140-148) mmol/L Potassium 3.7 (3.6-5.2) mmol/L Chloride 100 (100-108) mmol/L Carbon Dioxide 30 (21-32) mmol/L Anion Gap 12.7 (5.0-14.0) mmol/L BUN 19 H (7-18) mg/dL Creatinine 1.1 (0.8-1.3) mg/dL Est Cr Clr Drug Dosing 106.92 mL/min Estimated GFR (MDRD) > 60 (>60) Glucose 90 (74-106) mg/dL Lactic Acid 0.8 (0.4-2.0) mmol/L Calcium 9.5 (8.5-10.1) mg/dL Total Bilirubin 0.4 (0.2-1.0) mg/dL AST 20 (15-37) U/L ALT 24 (12-78) U/L Alkaline Phosphatase 98 (46-116) U/L Total Protein 7.5 (6.4-8.2) g/dL Albumin 3.9 (3.4-5.0) g/dL Globulin 3.6 H (2.3-3.5) g/dL Albumin/Globulin Ratio 1.1 L (1.2-2.2) Lipase 96 (73-393) U/L Urine Color Urine Appearance Urine pH (4.5-8.0) Ur Specific [place] (1.008-1.030) Urine Protein (NEGATIVE) mg/dL Urine Glucose (UA) (NEGATIVE) mg/dL Urine Ketones (NEGATIVE) mg/dL Urine Occult Blood (NEGATIVE) Urine Nitrite (NEGAITVE) Urine Bilirubin (NEGATIVE) Urine Urobilinogen (NORMAL) mg/dL Ur Leukocyte Esterase (NEGATIVE) Urine RBC (0-5) Urine WBC (0-5) Ur Epithelial Cells Amorphous Sediment Urine Bacteria Urine Mucus 08/29/18 Range/Units 23:24 WBC (4.5-11.0) K/uL RBC (4.30-5.90) M/uL Hgb (12.0-15.0) g/dL Hct (40.0-54.0) % MCV (80-98) fL MCH (27-31) pg MCHC (32-36) % Plt Count (150-400) K/uL Neut % (Auto) (36-66) % Lymph % (Auto) (24-44) % [place] % (Auto) (2-6) % Eos % (Auto) (2-4) % Baso % (Auto) (0-1) % Sodium (140-148) mmol/L Potassium (3.6-5.2) mmol/L Chloride (100-108) mmol/L Carbon Dioxide (21-32) mmol/L Anion Gap (5.0-14.0) mmol/L BUN (7-18) mg/dL Creatinine (0.8-1.3) mg/dL Est Cr Clr Drug Dosing mL/min Estimated GFR (MDRD) (>60) Glucose (74-106) mg/dL Lactic Acid (0.4-2.0) mmol/L Calcium (8.5-10.1) mg/dL Total Bilirubin (0.2-1.0) mg/dL AST (15-37) U/L ALT (12-78) U/L Alkaline Phosphatase (46-116) U/L Total Protein (6.4-8.2) g/dL Albumin (3.4-5.0) g/dL Globulin (2.3-3.5) g/dL Albumin/Globulin Ratio (1.2-2.2) Lipase (73-393) U/L Urine Color Yellow Urine Appearance Clear Urine pH 7.0 (4.5-8.0) Ur Specific [place] 1.010 (1.008-1.030) Urine Protein Negative (NEGATIVE) mg/dL Urine Glucose (UA) Normal (NEGATIVE) mg/dL Urine Ketones Negative (NEGATIVE) mg/dL Urine Occult Blood Negative (NEGATIVE) Urine Nitrite Negative (NEGAITVE) Urine Bilirubin Negative (NEGATIVE) Urine Urobilinogen Normal (NORMAL) mg/dL Ur Leukocyte Esterase Negative (NEGATIVE) Urine RBC 0-5 (0-5) Urine WBC 0-5 (0-5) Ur Epithelial Cells Rare Amorphous Sediment Not seen Urine Bacteria Few Urine Mucus Not seen Med Orders - Current: Current Medications Albuterol (Proventil Neb Soln) 2.5 mg NEB Q4H PRN PRN Reason: Shortness Of Breath/wheezing Hydromorphone HCl (Dilaudid Hypoid Gear Generator 15 Mg In Ns 30 Ml) 0 mg IV ASDIRECTED PRN; Protocol PRN Reason: Pain Last Admin: 08/30/18 03:46 Dose: 15 mg Lactated Ringer's (Ringers, Lactated) 1,000 mls @ 125 mls/hr IV ASDIRECTED [facility] Last Admin: 08/30/18 11:31 Dose: 125 mls/hr Lorazepam (Ativan) 1 mg IV Q6H PRN PRN Reason: Nausea/Vomiting Naloxone HCl (Narcan) 0.4 mg IVPUSH Q2M PRN PRN Reason: Respiratory Distress Nicotine (Habitrol) 21 mg TRDERM DAILY [facility] Last Admin: 08/30/18 14:48 Dose: 21 mg Nicotine Polacrilex (Nicorelief) 2 mg CHEW Q1H PRN PRN Reason: Other Ondansetron HCl (Zofran Odt) 4 mg PO Q6H PRN PRN Reason: Nausea able to take PO Last Admin: 08/30/18 16:41 Dose: 4 mg Pantoprazole Sodium (Protonix Iv) 40 mg IVPUSH Q12H [facility] Last Admin: 08/30/18 15:58 Dose: 40 mg Sodium Chloride (Saline Flush) 10 ml FLUSH ASDIRECTED PRN PRN Reason: Keep Vein Open Last Admin: 08/29/18 23:04 Dose: 10 ml Discontinued Medications Fentanyl (Sublimaze) 50 mcg IVPUSH ONETIME ONE Stop: 08/29/18 22:52 Last Admin: 08/29/18 23:04 Dose: 50 mcg Hydromorphone HCl (Dilaudid) 1 mg IVPUSH ONETIME ONE Stop: 08/30/18 02:00 Last Admin: 08/30/18 02:04 Dose: 1 mg Lactated Ringer's (Ringers, Lactated) 1,000 mls @ 999 mls/hr IV ASDIRECTED ANAID Last Admin: 08/29/18 23:36 Dose: 999 mls/hr Sodium Chloride (Normal Saline) 75 mls @ 3.5 mls/sec IV ASDIRECTED STA Stop: 08/29/18 23:20 Last Admin: 08/29/18 23:25 Dose: 3.5 mls/sec Iopamidol (Isovue-300 (61%)) 116 ml IV . DIRECTED STA Stop: 08/29/18 23:19 Last Admin: 08/29/18 23:24 Dose: 150 ml Lidocaine HCl (Xylocaine-Mpf 1%) 5 ml INJECT ONETIME ONE Stop: 08/30/18 02:00 Last Admin: 08/30/18 02:04 Dose: 5 ml Lorazepam (Ativan) 1 mg IVPUSH ONETIME ONE Stop: 08/30/18 01:36 Last Admin: 08/30/18 01:43 Dose: 1 mg Ondansetron HCl (Zofran) 4 mg IVPUSH ONETIME ONE Stop: 08/29/18 22:52 Last Admin: 08/29/18 23:04 Dose: 4 mg - Exam General: Alert, Oriented, Cooperative, Mild Distress Lungs: Clear to Auscultation, Normal Respiratory Effort Cardiovascular: Regular Rate, Regular Rhythm, No Murmurs GI/Abdominal Exam: Soft, Non-Tender, No Organomegaly, No Distention - Problem List Review Problem List Initiated/Reviewed/Updated: Yes - My Orders Last 24 Hours: My Active Orders 08/30/18 12:55 Nicotine Polacrilex [Nicorelief] 2 mg CHEW Q1H PRN 08/30/18 13:00 Nicotine [Habitrol] 21 mg TRDERM DAILY 08/31/18 05:00 Abdomen 2V AP Upright Decub [CR] Timed BASIC METABOLIC PANEL,BMP [CHEM] Timed - Plan Plan:: Small Bowel Obstruction ASSESSMENT / PLAN Partial Small Bowel Obstruction -NG to low intermittent suction, NG 18 fr at 55 cm. -Nothing by mouth -IV fluids Lacted Ringers 125 mL per hour for hydration -Anti-medic therapy as needed -Dilaudid [employer]OR for pain control -Follow-up labs and abdominal x-ray in a.m. Tobacco Dependence -Daily nicotinic patch -Continue gum as needed Maintenance issues -Orders home meds: hold -Nutrition: Nothing by mouth -Llanos catheter not indicated at this time -DVT: ambulate -PPI: IV Protonix 40mg BID CODE STATUS: FULL CODE Admission status: Admit to [address] [place] [address] Admission justification. This patient will be admitted for inpatient services and is medically appropriate meeting medical necessity for inpatient admission as outlined in my documentation. I reasonably expect the patient will require inpatient services that span. Time over 2 midnights. I reasonably expect this patient to be discharged or transferred within 96 hours after admission to the critical access hospital. Disposition: home
[2018-08-30] MEDS ORDERED: Phenol/Sodium Phenolate Spray 180 ML Bottle MUCMEM PRN (20:56)
[2018-08-31] MEDS: Pantoprazole 40 MG Vial IVPUSH SCH (03:22)
[2018-08-31] MEDS: Lactated Ringers 1,000 ML IV SCH (03:24)
--- NOTE | 2018-08-31 04:20 | CRLCR ---
Indication: SMALL-BOWEL OBSTRUCTION FOLLOW-UP Technique: KUB 2 view Comparison: AUGUST 30, 2018 Findings/Impression: : Tip of the gastric drainage tube terminates at the level of the proximal stomach. Nonspecific bowel gas pattern. No free air or pneumatosis. No evidence for obstruction. Osseous structures intact. Lung bases are clear. Dictated by Domenica Leiva MD @ Aug 31 2018 4:13AM Signed by Dr. Domenica Leiva @ Aug 31 2018 4:19AM
[2018-08-31] MEDS ORDERED: Pneumococcal Polyvalent-23 Vaccine 0.5 ML SDV IM ONE (10:00)
[2018-08-31] MEDS: Nicotine 21 MG/24 Hr Patch TRDERM SCH ×2 (10:28→11:30)
[2018-08-31] MEDS ORDERED: oxyCODONE 5 MG Tab PO PRN (12:21)
--- NOTE | 2018-08-31 12:26 | PCM.PN ---
- General Info Date of Service: 08/31/18 Subjective Update: Mr. Le has improved since yesterday, no nausea vomiting or abdominal pain. NG output is been minimal when ice chip intake is accounted for and he has been passing some gas. No bowel movement thus far. Abdominal flat plate and upright x -ray from this morning shows no evidence of obstruction. Functional Status: Reports: Pain Controlled, Ambulating, Urinating - Review of Systems General: Denies: Fever, Weakness, Chills Pulmonary: Reports: No Symptoms Cardiovascular: Reports: No Symptoms Gastrointestinal: Reports: No Symptoms - Patient Data Vitals - Most Recent: Last Vital Signs Temp 97.3 F 08/31/18 10:47 Pulse 64 08/31/18 10:47 Resp 16 08/31/18 10:47 BP 116/73 08/31/18 10:47 Pulse Ox 97 08/31/18 10:47 Weight - Most Recent: 169 lb 15.975 oz I&O - Last 24 Hours: Intake & Output 08/30/18 08/31/18 08/31/18 22:59 06:59 14:59 Intake Total 1371 1436 100 Output Total 1150 1000 Balance 221 436 100 Lab Results Last 24 Hours: Laboratory Results - last 24 hr 08/31/18 Range/Units 05:43 Sodium 139 L (140-148) mmol/L Potassium 3.9 (3.6-5.2) mmol/L Chloride 100 (100-108) mmol/L Carbon Dioxide 31 (21-32) mmol/L Anion Gap 11.9 (5.0-14.0) mmol/L BUN 12 (7-18) mg/dL Creatinine 1.1 (0.8-1.3) mg/dL Est Cr Clr Drug Dosing 107.18 mL/min Estimated GFR (MDRD) > 60 (>60) Glucose 76 (74-106) mg/dL Calcium 9.1 (8.5-10.1) mg/dL Med Orders - Current: Current Medications Albuterol (Proventil Neb Soln) 2.5 mg NEB Q4H PRN PRN Reason: Shortness Of Breath/wheezing Nicotine (Habitrol) 21 mg TRDERM DAILY ANAID Last Admin: 08/31/18 11:30 Dose: 21 mg Nicotine Polacrilex (Nicorelief) 2 mg CHEW Q1H PRN PRN Reason: Other Ondansetron HCl (Zofran Odt) 4 mg PO Q6H PRN PRN Reason: Nausea able to take PO Last Admin: 08/30/18 16:41 Dose: 4 mg Oxycodone HCl (Oxycodone) 5 mg PO Q4H PRN PRN Reason: Pain Phenol (Phenaseptic Liquid) 0 ml MUCMEM Q2H PRN PRN Reason: Sore Throat Last Admin: 08/30/18 21:29 Dose: 1 spray Sodium Chloride (Saline Flush) 10 ml FLUSH ASDIRECTED PRN PRN Reason: Keep Vein Open Last Admin: 08/29/18 23:04 Dose: 10 ml Discontinued Medications Fentanyl (Sublimaze) 50 mcg IVPUSH ONETIME ONE Stop: 08/29/18 22:52 Last Admin: 08/29/18 23:04 Dose: 50 mcg Hydromorphone HCl (Dilaudid) 1 mg IVPUSH ONETIME ONE Stop: 08/30/18 02:00 Last Admin: 08/30/18 02:04 Dose: 1 mg Hydromorphone HCl (Dilaudid Urogynecology Physician 15 Mg In Ns 30 Ml) 0 mg IV ASDIRECTED PRN; Protocol PRN Reason: Pain Last Admin: 08/30/18 03:46 Dose: 15 mg Lactated Ringer's (Ringers, Lactated) 1,000 mls @ 999 mls/hr IV ASDIRECTED [facility] Last Admin: 08/29/18 23:36 Dose: 999 mls/hr Sodium Chloride (Normal Saline) 75 mls @ 3.5 mls/sec IV ASDIRECTED STA Stop: 08/29/18 23:20 Last Admin: 08/29/18 23:25 Dose: 3.5 mls/sec Lactated Ringer's (Ringers, Lactated) 1,000 mls @ 125 mls/hr IV ASDIRECTED [facility] Last Admin: 08/31/18 03:24 Dose: 125 mls/hr Iopamidol (Isovue-300 (61%)) 116 ml IV . DIRECTED STA Stop: 08/29/18 23:19 Last Admin: 08/29/18 23:24 Dose: 150 ml Lidocaine HCl (Xylocaine-Mpf 1%) 5 ml INJECT ONETIME ONE Stop: 08/30/18 02:00 Last Admin: 08/30/18 02:04 Dose: 5 ml Lorazepam (Ativan) 1 mg IVPUSH ONETIME ONE Stop: 08/30/18 01:36 Last Admin: 08/30/18 01:43 Dose: 1 mg Lorazepam (Ativan) 1 mg IV Q6H PRN PRN Reason: Nausea/Vomiting Naloxone HCl (Narcan) 0.4 mg IVPUSH Q2M PRN PRN Reason: Respiratory Distress Ondansetron HCl (Zofran) 4 mg IVPUSH ONETIME ONE Stop: 08/29/18 22:52 Last Admin: 08/29/18 23:04 Dose: 4 mg Pantoprazole Sodium (Protonix Iv) 40 mg IVPUSH Q12H ANAID Last Admin: 08/31/18 03:22 Dose: 40 mg Pneumococcal Polyvalent Vaccine (Pneumovax 23) 0.5 ml IM .ONCE ONE Stop: 08/31/18 10:01 Last Admin: 08/31/18 10:54 Dose: 0.5 ml - Exam General: Alert, Oriented, Cooperative, No Acute Distress Lungs: Clear to Auscultation, Normal Respiratory Effort Cardiovascular: Regular Rate, Regular Rhythm, No Murmurs GI/Abdominal Exam: Normal Bowel Sounds, Soft, Non-Tender, No Organomegaly, No Distention Extremities: Non-Tender, No Pedal Edema - Problem List Review Problem List Initiated/Reviewed/Updated: Yes - My Orders Last 24 Hours: My Active Orders 08/30/18 12:55 Nicotine Polacrilex [Nicorelief] 2 mg CHEW Q1H PRN 08/30/18 13:00 Nicotine [Habitrol] 21 mg TRDERM DAILY 08/30/18 20:56 Phenol/Sodium Phenolate [Phenaseptic Liquid] 0 ml MUCMEM Q2H PRN 08/31/18 12:18 Nasogastric Orogastric Tube Removal [OM.PC] Routine 08/31/18 12:20 Convert IV to Saline Lock [OM.PC] Routine 08/31/18 12:21 oxyCODONE 5 mg PO Q4H PRN 08/31/18 Lunch Full Liquid Diet [DIET] - Plan Plan:: ASSESSMENT / PLAN Partial Small Bowel Obstruction-no evidence of obstruction seen on abdominal flat plate and upright, currently asymptomatic -Discontinue NG tube -Full liquid diet -Saline lock IV -Anti-medic therapy as needed Tobacco Dependence -Daily nicotine patch -Nicotine gum as needed Maintenance issues -Orders home meds: hold -Nutrition: Nothing by mouth -Llanos catheter not indicated at this time -DVT: ambulate -PPI: IV Protonix 40mg BID CODE STATUS: FULL CODE Admission status: Admit to [address] [place] [address] Admission justification. This patient will be admitted for inpatient services and is medically appropriate meeting medical necessity for inpatient admission as outlined in my documentation. I reasonably expect the patient will require inpatient services that span. Time over 2 midnights. I reasonably expect this patient to be discharged or transferred within 96 hours after admission to the critical [facility]. Disposition: home
--- NOTE | 2018-08-31 16:07 | PCM.DCSUM1 ---
Discharge Summary - Hospital Course Brief History: Mr. Le is a 23-year-old gentleman who was admitted through the emergency department with abdominal pain, nausea, and vomiting, secondary to small bowel obstruction. - Discharge Data Discharge Date: 08/31/18 Discharge Disposition: Home, Self-Care 01 Condition: Fair - Discharge Diagnosis/Problem(s) (1) SBO (small bowel obstruction) SNOMED Code(s): 444459377 ICD Code: K56.609 - UNSP INTESTNL OBST, UNSP TO PARTIAL VERSUS COMPLETE OBST Status: Acute Priority: High Current Visit: Yes (2) Tobacco dependence SNOMED Code(s): 53205411 ICD Code: F17.200 - NICOTINE DEPENDENCE, UNSPECIFIED, UNCOMPLICATED Status : Chronic Priority: High Current Visit: Yes - Patient Summary/Data Hospital Course: Mr. Le is a 23-year-old gentleman presented to the emergency department with a three-day history of nausea and abdominal pain. Symptoms have become progressively worse over the three-day course and were fairly intense at the time of evaluation. Laboratory studies were unremarkable, CT scan of the abdomen and pelvis showed evidence of small bowel obstruction with probable transition point in the left abdomen. He was admitted to the hospital after an NG tube was placed to low intermittent suction in the emergency department. Symptoms of abdominal pain and nausea resolved almost immediately after the NG tube was placed. He was given IV fluids for hydration as well as medication for pain and nausea. Gradually over the next 2 days of his hospital stay he began to pass more gas but did not have a bowel movement. NG output became fairly minimal, when accounting for ice chip intake. On the morning of discharge the NG tube was removed and he was started on a full liquid diet which he tolerated for 1 meal. In the afternoon he has to speak with me and requested that he be allowed to try soft diet with his plan to leave for home after that meal. I did explain to him that this was rushing things and I would prefer to watch him at least an additional 24 hours before discharge. He understood my recommendation but decided to proceed with discharge. He was given a soft low residue diet prior to discharge and will continue this diet at home over the next 10-14 days. Activity will be as tolerated and a follow-up appointment will be scheduled with primary care within 1 week. Consider upper and lower endoscopy as an outpatient. He will return to the emergency department if he notes recurrent symptoms of abdominal pain and/or nausea. - Patient Instructions Diet: GI Soft/Low Residue/Low Fiber Diet, Other: Soft low residue diet for 10 days Activity: As Tolerated Other/Special Instructions: Please schedule follow-up appointment with primary care provider within one week. - Discharge Plan *PRESCRIPTION DRUG MONITORING PROGRAM REVIEWED*: Not Applicable *COPY OF PRESCRIPTION DRUG MONITORING REPORT IN PATIENT CHERYL: Not Applicable Home Medications: Home Meds NK [No Known Home Meds] 03/31/17 [History] Referrals: Domenica Barnard MD [Ordering Only Provider] - - Discharge Summary/Plan Comment DC Time >30 min.: No - Patient Data Vitals - Most Recent: Last Vital Signs Temp 97.9 F 08/31/18 15:08 Pulse 67 08/31/18 15:08 Resp 16 08/31/18 15:08 BP 132/70 08/31/18 15:08 Pulse Ox 97 08/31/18 15:08 Weight - Most Recent: 169 lb 15.975 oz I&O - Last 24 hours: Intake & Output 08/31/18 08/31/18 08/31/18 06:59 14:59 22:59 Intake Total 1436 1395 Output Total 1000 300 Balance 436 1095 Lab Results - Last 24 hrs: Laboratory Results - last 24 hr 08/31/18 Range/Units 05:43 Sodium 139 L (140-148) mmol/L Potassium 3.9 (3.6-5.2) mmol/L Chloride 100 (100-108) mmol/L Carbon Dioxide 31 (21-32) mmol/L Anion Gap 11.9 (5.0-14.0) mmol/L BUN 12 (7-18) mg/dL Creatinine 1.1 (0.8-1.3) mg/dL Est Cr Clr Drug Dosing 107.18 mL/min Estimated GFR (MDRD) > 60 (>60) Glucose 76 (74-106) mg/dL Calcium 9.1 (8.5-10.1) mg/dL Med Orders - Current: Current Medications Albuterol (Proventil Neb Soln) 2.5 mg NEB Q4H PRN PRN Reason: Shortness Of Breath/wheezing Nicotine (Habitrol) 21 mg TRDERM DAILY ANAID Last Admin: 08/31/18 11:30 Dose: 21 mg Nicotine Polacrilex (Nicorelief) 2 mg CHEW Q1H PRN PRN Reason: Other Ondansetron HCl (Zofran Odt) 4 mg PO Q6H PRN PRN Reason: Nausea able to take PO Last Admin: 08/30/18 16:41 Dose: 4 mg Oxycodone HCl (Oxycodone) 5 mg PO Q4H PRN PRN Reason: Pain Phenol (Phenaseptic Liquid) 0 ml MUCMEM Q2H PRN PRN Reason: Sore Throat Last Admin: 08/30/18 21:29 Dose: 1 spray Sodium Chloride (Saline Flush) 10 ml FLUSH ASDIRECTED PRN PRN Reason: Keep Vein Open Last Admin: 08/29/18 23:04 Dose: 10 ml Discontinued Medications Fentanyl (Sublimaze) 50 mcg IVPUSH ONETIME ONE Stop: 08/29/18 22:52 Last Admin: 08/29/18 23:04 Dose: 50 mcg Hydromorphone HCl (Dilaudid) 1 mg IVPUSH ONETIME ONE Stop: 08/30/18 02:00 Last Admin: 08/30/18 02:04 Dose: 1 mg Hydromorphone HCl (Dilaudid Energy Efficiency Specialist 15 Mg In Ns 30 Ml) 0 mg IV ASDIRECTED PRN; Protocol PRN Reason: Pain Last Admin: 08/30/18 03:46 Dose: 15 mg Lactated Ringer's (Ringers, Lactated) 1,000 mls @ 999 mls/hr IV ASDIRECTED [facility] Last Admin: 08/29/18 23:36 Dose: 999 mls/hr Sodium Chloride (Normal Saline) 75 mls @ 3.5 mls/sec IV ASDIRECTED STA Stop: 08/29/18 23:20 Last Admin: 08/29/18 23:25 Dose: 3.5 mls/sec Lactated Ringer's (Ringers, Lactated) 1,000 mls @ 125 mls/hr IV ASDIRECTED [facility] Last Admin: 08/31/18 03:24 Dose: 125 mls/hr Iopamidol (Isovue-300 (61%)) 116 ml IV . DIRECTED STA Stop: 08/29/18 23:19 Last Admin: 08/29/18 23:24 Dose: 150 ml Lidocaine HCl (Xylocaine-Mpf 1%) 5 ml INJECT ONETIME ONE Stop: 08/30/18 02:00 Last Admin: 08/30/18 02:04 Dose: 5 ml Lorazepam (Ativan) 1 mg IVPUSH ONETIME ONE Stop: 08/30/18 01:36 Last Admin: 08/30/18 01:43 Dose: 1 mg Lorazepam (Ativan) 1 mg IV Q6H PRN PRN Reason: Nausea/Vomiting Naloxone HCl (Narcan) 0.4 mg IVPUSH Q2M PRN PRN Reason: Respiratory Distress Ondansetron HCl (Zofran) 4 mg IVPUSH ONETIME ONE Stop: 08/29/18 22:52 Last Admin: 08/29/18 23:04 Dose: 4 mg Pantoprazole Sodium (Protonix Iv) 40 mg IVPUSH Q12H ANAID Last Admin: 08/31/18 03:22 Dose: 40 mg Pneumococcal Polyvalent Vaccine (Pneumovax 23) 0.5 ml IM .ONCE ONE Stop: 08/31/18 10:01 Last Admin: 08/31/18 10:54 Dose: 0.5 ml - Exam General: Reports: Alert, Oriented, Cooperative, No Acute Distress Lungs: Reports: Clear to Auscultation, Normal Respiratory Effort Cardiovascular: Reports: Regular Rate, Regular Rhythm, No Murmurs GI/Abdominal Exam: Soft, Non-Tender, No Organomegaly, No Distention Extremities: Non-Tender, No Pedal Edema
== END 2018-08-31 16:45 | disposition home or self-care (01) | DRG 390 ==
LOC: JP.ED 22:22 → JP.2SS 08-30 02:03 → JP.MS 08-30 04:45
PROVIDERS: ADMIT Internal Medicine; ATTEND Hospitalist
PROC: 0D9670Z Drainage of Stomach with Drainage Device, Via Natural or Artificial Opening (ICD-10-PCS; principal; 2018-08-30)
DX: K56.600 Partial intestinal obstruction, unspecified as to cause (principal); G43.909 Migraine, unspecified, not intractable, without status migrainosus; F17.210 Nicotine dependence, cigarettes, uncomplicated
CPT/HCPCS: 36415; 74018; 74021; 74177; 80048; 80053; 81001; 83605; 83690; 85025; 90732; 94762; 96361; 96374; 96375; 99285-25; A9270-GY; C9113; J1170; J2001; J2060; J2405; J3010; J7030; J7120

== ENCOUNTER 2018-08-31 22:00 | Emergency (ER) | payer OTHER ==
--- NOTE | 2018-08-31 22:42 | EDM.PDOC ---
ED HPI GENERAL MEDICAL PROBLEM - General Chief Complaint: Abdominal Pain Stated Complaint: ABD PAIN Time Seen by Provider: 08/31/18 22:35 Source of Information: Reports: Patient, Family, Old Records, RN Notes Reviewed History Limitations: Reports: No Limitations - History of Present Illness INITIAL COMMENTS - FREE TEXT/NARRATIVE: 23-year-old gentleman presents to the emergency department today complaint of abdominal pain, he was recently admitted and discharged from the hospital today for small bowel obstruction with spontaneous resolution with an NG tube. Was tolerating diet today passed gas and no difficulty. About an hour prior he had sudden onset of pain that felt similar he was able to pass gas while in the emergency department here there is no nausea he declines any pain medication at this time Abdominal Pain Score (Numeric/FACES): 3 - Related Data Allergies Allergy/AdvReac Type Severity Reaction Status Date / Time No Known Allergies Allergy Verified 08/31/18 22:25 Home Meds: Home Meds NK [No Known Home Meds] 03/31/17 [History] Past Medical History Gastrointestinal History: Reports: Bowel Obstruction Musculoskeletal History: Reports: Fracture Other Musculoskeletal History: Fx hand s,arms, legs, toes. Neurological History: Reports: Concussion, Migraines Dermatologic History: Reports: Other (See Below) Other Dermatologic History: rash - Infectious Disease History Infectious Disease History: Reports: Chicken Pox - Past Surgical History GI Surgical History: Reports: Hernia, Inguinal Other GI Surgeries/Procedures: Two hernia repairs in the past. Social & Family History - Family History Family Medical History: Unobtainable - Tobacco Use Smoking Status *Q: Current Every Day Smoker Years of Tobacco use: 11 Packs/Tins Daily: 1 - Caffeine Use Caffeine Use: Reports: Coffee, Soda - Alcohol Use Days Per Week of Alcohol Use: 2 Number of Drinks Per Day: 2 Total Drinks Per Week: 4 - Recreational Drug Use Recreational Drug Use: Yes Drug Use in Last 12 Months: Yes Recreational Drug Type: Reports: Marijuana/Hashish Recreational Drug Use Frequency: Daily Recreational Drug Last Use: 08/29/18 - Living Situation & Occupation Occupation: Employed (Works at [employer]. lives in [place] with roommate. Has a girlfriend Denisse.) ED ROS GENERAL - Review of Systems Review Of Systems: See Below Constitutional: Reports: No Symptoms HEENT: Reports: No Symptoms Respiratory: Reports: No Symptoms Cardiovascular: Reports: No Symptoms GI/Abdominal: Reports: Abdominal Pain, Flatus. Denies: Constipation, Diarrhea, Nausea, Vomiting ED EXAM, GI/ABD - Physical Exam Exam: See Below Exam Limited By: No Limitations General Appearance: Alert, WD/WN, No Apparent Distress Respiratory/Chest: No Respiratory Distress, Lungs Clear Cardiovascular: Regular Rate, Rhythm, No Murmur GI/Abdominal Exam: Normal Bowel Sounds, Soft, Non-Tender, No Distention Course - Vital Signs Last Recorded V/S: Last Vital Signs Temp 96.3 F 08/31/18 22:34 Pulse 54 L 08/31/18 23:56 Resp 16 08/31/18 23:56 BP 129/74 08/31/18 23:56 Pulse Ox 99 08/31/18 23:56 - Orders/Labs/Meds Orders: Active Orders 24 hr Category Date Time Status Abdomen 1V Upright [CR] Stat Exams 08/31/18 22:40 Ordered Labs: Laboratory Tests 08/31/18 08/31/18 Range/Units 22:40 22:40 WBC 6.2 (4.5-11.0) K/uL RBC 4.91 (4.30-5.90) M/uL Hgb 14.9 (12.0-15.0) g/dL Hct 42.1 (40.0-54.0) % MCV 86 (80-98) fL MCH 30 (27-31) pg MCHC 35 (32-36) % Plt Count 237 (150-400) K/uL Neut % (Auto) 55 (36-66) % Lymph % (Auto) 26 (24-44) % [place] % (Auto) 17 H (2-6) % Eos % (Auto) 1 L (2-4) % Baso % (Auto) 1 (0-1) % Sodium 137 L (140-148) mmol/L Potassium 4.1 (3.6-5.2) mmol/L Chloride 99 L (100-108) mmol/L Carbon Dioxide 28 (21-32) mmol/L Anion Gap 14.1 H (5.0-14.0) mmol/L BUN 17 (7-18) mg/dL Creatinine 1.1 (0.8-1.3) mg/dL Est Cr Clr Drug Dosing 106.92 mL/min Estimated GFR (MDRD) > 60 (>60) Glucose 101 (74-106) mg/dL Calcium 9.3 (8.5-10.1) mg/dL Departure - Departure Time of Disposition: 23:58 Disposition: Home, Self-Care 01 Condition: Fair Clinical Impression: Functional constipation - Discharge Information Referrals: PCP,None [Primary Care Provider] - Forms: ED Department Discharge Additional Instructions: try the colonoscopy prep with MiraLAX and follow up with her primary care in 3- 5 days if no improvement come: Return to the emergency department for worsening of symptoms - My Orders Last 24 Hours: My Active Orders 08/31/18 22:40 Abdomen 1V Upright [CR] Stat - Assessment/Plan Last 24 Hours: My Active Orders 08/31/18 22:40 Abdomen 1V Upright [CR] Stat Plan: Assessment Functional constipation secondary to slow transit time with recent small bowel obstruction Lab work shows CBC CMP within normal limits plain film the abdomen does show large amount of stool Plan He was provided the directions for the colonoscopy prep using MiraLAX follow-up primary care 3-5 days if no improvement
--- NOTE | 2018-09-01 09:37 | CRLCR ---
Final Report: INDICATION: Discharged from hospital today, now with increased abdominal pain. COMPARISON: From earlier today at 0338 hours FINDINGS: A single AP supine view of the abdomen was obtained. The bowel gas pattern is unremarkable with nothing seen to suggest obstruction or ileus. There is no sign of dilatation of the small bowel or colon. There is no free air. There is increased fecal material in the descending and sigmoid colon. This could represent early constipation. Soft tissue planes are preserved and there is no sign of a mass. No calcifications of concern are identified. The osseous structures are normal in appearance for the patient`s age. The lung bases are incompletely seen, but the portion that is seen is clear. IMPRESSION: No sign of obstruction or ileus. Increased fecal material in the descending and sigmoid colons, possible early constipation. Dictated by Edward Flowers MD @ Aug 31 2018 11:46PM Signed by: Edward Flowers MD @08/31/2018 11:49:12 PM (Electronic Signature) MTDD
== END 2018-09-01 00:24 | disposition home or self-care (01) ==
LOC: JP.ED 22:00
DX: K59.04 Chronic idiopathic constipation (principal); F17.210 Nicotine dependence, cigarettes, uncomplicated
CPT/HCPCS: 36415; 74018; 80048; 85025; 99283; 99284-25

== ENCOUNTER 2025-01-30 10:30 | Emergency (ER) | payer SELFPAY | END 2025-01-30 11:37 | disposition home or self-care (01) | LOC: JP.ED 10:30 | DX: M25.552 Pain in left hip (principal); Z79.899 Other long term (current) drug therapy; Z87.891 Personal history of nicotine dependence; X50.0XXA Overexertion from strenuous movement or load, initial encounter | CPT/HCPCS: 99283 ==